=== PATIENT | male | born 1985 | race Two or more races ===

== ENCOUNTER 2018-04-02 04:55 | Inpatient (IN) | payer MEDICAID ==
[~2018-04-02] VITALS: Ht 383.5 cm; Wt 64.6 kg
[2018-04-02 10:26] LABS: BASOPHILS % 0.2 % (0.0-2.0); HEMATOCRIT. 52.2 % (42.0-52.0); HEMOGLOBIN. 17.2 g/dL (14.0-18.0); LYMPHOCYTES % 15.1 % (20.0-50.0); MEAN CORPUSCULAR HEMOGLOBIN 27.4 pg (28.0-32.0); MEAN CORPUSCULAR VOLUME 83.2 fL (80.0-94.0); MEAN PLATELET VOLUME 10.2 fl (7.4-10.4); MONOCYTES % 11.4 % (2.0-8.0); NEUTROPHILS % 73.3 % (40.0-76.0); PLATELET 224 x1000/uL (130-400); RED BLOOD CELL COUNT 6.27 mill/uL (4.7-6.1); RED CELL DISTRIBUTION WIDTH 17.6 % (11.6-14.6)
[2018-04-02] MEDS ORDERED: SODIUM CHLORIDE 0.9% 1,000 ML IV ONE ×2 (10:31→11:59)
[2018-04-02] MEDS ORDERED: LORAZEPAM 2MG/ML CPJ IV STA (10:31)
[2018-04-02 10:37] LABS: CHLORIDE 103 mEq/L (98-107)
[2018-04-02 10:42] LABS: ETHANOL BLOOD < 10 mg/dL
[2018-04-02 11:59] LABS: CLARITY URINE TURBID (CLEAR); COLOR URINE YELLOW (YELLOW); KETONES URINE NEGATIVE (NEGATIVE); LEUKOCYTE ESTERASE URINE NEGATIVE (NEGATIVE); NITRITE URINE NEGATIVE (NEGATIVE); OCCULT BLOOD URINE 1+ (NEGATIVE); PROTEIN URINE 2+ (NEGATIVE); SPECIFIC GRAVITY URINE 1.017 (1.005-1.030); UROBILINOGEN URINE 0.2 E.U./dL (0.2-1.0)
[2018-04-02] MEDS ORDERED: PIPERACILLIN/TAZ 3.375G PREMIX 50 ML IV ONE (12:00)
[2018-04-02] MEDS ORDERED: VANCOMYCIN 1 G PREMIX 200 ML IV ONE (12:00)
[2018-04-02] MEDS ORDERED: LORAZEPAM 2MG/ML CPJ IV ONE (12:00)
[2018-04-02 13:00] LABS: *AMPHETAMINES SCREEN URINE NEGATIVE (NEGATIVE); *BARBITURATES SCREEN URINE NEGATIVE (NEGATIVE); *BENZODIAZEPINES SCREEN URINE NEGATIVE (NEGATIVE); *COCAINE SCREEN URINE NEGATIVE (NEGATIVE); CANNABINOID URINE SCREEN NEGATIVE (NEGATIVE); METHADONE URINE SCREEN NEGATIVE (NEGATIVE); OPIATES URINE SCREEN NEGATIVE (NEGATIVE); PHENCYCLIDINE URINE SCREEN NEGATIVE (NEGATIVE)
[2018-04-02] MEDS ORDERED: DIPHENHYDRAMINE 50MG/ML VIAL IM STA (13:17)
[2018-04-02] MEDS ORDERED: OLANZAPINE 10 MG/VIAL IM STA (13:17)
[2018-04-02] MEDS ORDERED: LORAZEPAM 2MG/ML CPJ IV PRN (15:00)
[2018-04-02] MEDS ORDERED: HALOPERIDOL LACTATE 5MG/ML VIAL IM ONE (20:30)
[2018-04-02 20:45] VITALS: BP 113/68
[2018-04-02] MEDS: PIPERACILLIN/TAZ 3.375G PREMIX 50 ML IV SCH (22:08)
[2018-04-02] MEDS: DEXT 5%/0.45% NACL 1000ML 1,000 ML IV SCH (22:08)
[2018-04-02] MEDS ORDERED: PIPERACILLIN/TAZ 3.375G PREMIX 50 ML IV SCH (22:30)
[2018-04-02] MEDS: VANCOMYCIN 1250MG in DEXTROSE 5% WATER 250ML IV SCH (22:48)
[2018-04-03] VITALS: BP 126/69
[2018-04-03 04:00] VITALS: BP 104/62
[2018-04-03] MEDS: DEXT 5%/0.45% NACL 1000ML 1,000 ML IV SCH (05:28)
[2018-04-03] MEDS: PIPERACILLIN/TAZ 3.375G PREMIX 50 ML IV SCH ×3 (05:28→22:11)
[2018-04-03] MEDS: VANCOMYCIN 1250MG in DEXTROSE 5% WATER 250ML IV SCH ×2 (06:12→22:53)
[2018-04-03 08:04] VITALS: BP 109/62
[2018-04-03 12:11] VITALS: BP 118/68
[2018-04-03 16:30] VITALS: BP 128/70
[2018-04-03 20:00] VITALS: BP 126/80
[2018-04-03 20:58] LABS: HEMATOCRIT. 40.7 % (42.0-52.0); HEMOGLOBIN. 13.7 g/dL (14.0-18.0); MEAN CORPUSCULAR HEMOGLOBIN 27.1 pg (28.0-32.0); MEAN CORPUSCULAR VOLUME 80.8 fL (80.0-94.0); MEAN PLATELET VOLUME 9.5 fl (7.4-10.4); PLATELET 151 x1000/uL (130-400); RED BLOOD CELL COUNT 5.04 mill/uL (4.7-6.1); RED CELL DISTRIBUTION WIDTH 17.1 % (11.6-14.6)
[2018-04-03 21:40] LABS: PLATELET ESTIMATE NORMAL
[2018-04-04] VITALS: BP 112/57
[2018-04-04] MEDS: DEXT 5%/0.45% NACL 1000ML 1,000 ML IV SCH ×3 (01:30→22:20)
[2018-04-04 04:00] VITALS: BP 123/76
[2018-04-04] MEDS: PIPERACILLIN/TAZ 3.375G PREMIX 50 ML IV SCH ×4 (04:30→22:20)
[2018-04-04] MEDS: VANCOMYCIN 1250MG in DEXTROSE 5% WATER 250ML IV SCH (06:54)
[2018-04-04 08:00] VITALS: BP 123/73
[2018-04-04 12:00] VITALS: BP 149/95
[2018-04-04 16:00] VITALS: BP 138/79
[2018-04-04 23:06] LABS: CLARITY URINE CLOUDY (CLEAR); COLOR URINE YELLOW (YELLOW); KETONES URINE NEGATIVE (NEGATIVE); LEUKOCYTE ESTERASE URINE NEGATIVE (NEGATIVE); NITRITE URINE NEGATIVE (NEGATIVE); OCCULT BLOOD URINE 2+ (NEGATIVE); PH URINE 5.5 (4.5-8.0); PROTEIN URINE 1+ (NEGATIVE); SPECIFIC GRAVITY URINE 1.013 (1.005-1.030); UROBILINOGEN URINE 0.2 E.U./dL (0.2-1.0)
[2018-04-05] VITALS: BP 140/87
[2018-04-05 04:00] VITALS: BP 146/76
[2018-04-05] MEDS: PIPERACILLIN/TAZ 3.375G PREMIX 50 ML IV SCH ×2 (04:19→11:21)
[2018-04-05 07:49] LABS: HEMATOCRIT. 39.5 % (42.0-52.0); HEMOGLOBIN. 13.8 g/dL (14.0-18.0); MEAN CORPUSCULAR VOLUME 80.1 fL (80.0-94.0); MEAN PLATELET VOLUME 9.4 fl (7.4-10.4); PLATELET 152 x1000/uL (130-400); RED BLOOD CELL COUNT 4.92 mill/uL (4.7-6.1); RED CELL DISTRIBUTION WIDTH 16.7 % (11.6-14.6)
[2018-04-05 08:26] LABS: HIV SCREEN 4G Non Reactive (Non Reactive)
[2018-04-05 08:35] LABS: PHOSPHORUS 3.6 mg/dL (2.5-4.9)
[2018-04-05] MEDS: DEXT 5%/0.2% NACL 1,000 ML IV SCH ×2 (09:00→19:00)
[2018-04-05 12:00] VITALS: BP 151/71
[2018-04-05 14:20] LABS: PLATELET ESTIMATE NORMAL
[2018-04-05 16:00] VITALS: BP 146/70
[2018-04-05] MEDS: PIPERACILLIN/TAZ 2.25G PREMIX 50 ML IV SCH ×2 (18:56→21:31)
[2018-04-05 20:00] VITALS: BP 130/86
[2018-04-06 00:14] VITALS: BP 148/79
[2018-04-06 04:00] VITALS: BP 124/76
[2018-04-06] MEDS: DEXT 5%/0.2% NACL 1,000 ML IV SCH ×3 (04:23→23:32)
[2018-04-06] MEDS: PIPERACILLIN/TAZ 2.25G PREMIX 50 ML IV SCH ×4 (06:25→23:31)
[2018-04-06 08:00] VITALS: BP 156/90
[2018-04-06 12:00] VITALS: BP_SYST 126; BP_DIAS 68; BP_DIAS 86
[2018-04-06 13:28] LABS: HEMATOCRIT. 40.9 % (42.0-52.0); HEMOGLOBIN. 14.4 g/dL (14.0-18.0); MEAN CORPUSCULAR VOLUME 79.5 fL (80.0-94.0); MEAN PLATELET VOLUME 9.7 fl (7.4-10.4); PLATELET 163 x1000/uL (130-400); RED BLOOD CELL COUNT 5.14 mill/uL (4.7-6.1); RED CELL DISTRIBUTION WIDTH 16.5 % (11.6-14.6)
[2018-04-06 13:56] LABS: PHOSPHORUS 3.6 mg/dL (2.5-4.9)
[2018-04-06] MEDS ORDERED: POTASSIUM CHLORIDE 20MEQ TABLET SR PO SCH (14:15)
[2018-04-06 14:27] LABS: PLATELET ESTIMATE NORMAL
[2018-04-06 16:00] VITALS: BP 145/77
[2018-04-06] MEDS: QUETIAPINE FUMARATE 100MG TABLET PO SCH (16:09)
[2018-04-06] MEDS: THIAMINE HCL 100MG TABLET PO SCH (18:07)
[2018-04-06 20:00] VITALS: BP 124/73
[2018-04-06 22:21] LABS: VITAMIN B12 SERUM 787 pg/mL (211-911)
[2018-04-07] VITALS: BP 146/88
[2018-04-07 04:00] VITALS: BP 132/85
[2018-04-07] MEDS: PIPERACILLIN/TAZ 2.25G PREMIX 50 ML IV SCH ×2 (06:00→12:29)
[2018-04-07] MEDS: THIAMINE HCL 100MG TABLET PO SCH (08:20)
[2018-04-07] MEDS: QUETIAPINE FUMARATE 100MG TABLET PO SCH (08:20)
[2018-04-07] MEDS: LORAZEPAM 2MG/ML CPJ IM PRN (10:13)
[2018-04-07] MEDS: HALOPERIDOL LACTATE 5MG/ML VIAL IM PRN (10:41)
[2018-04-07] MEDS: DEXT 5%/0.2% NACL 1,000 ML IV SCH ×2 (11:00→20:24)
[2018-04-07 12:00] VITALS: BP 124/83
[2018-04-07 16:00] VITALS: BP 135/86
[2018-04-07 16:59] LABS: HEMOGLOBIN. 13.1 g/dL (14.0-18.0); MEAN CORPUSCULAR HEMOGLOBIN 27.6 pg (28.0-32.0); MEAN CORPUSCULAR VOLUME 80.2 fL (80.0-94.0); MEAN PLATELET VOLUME 9.8 fl (7.4-10.4); PLATELET 166 x1000/uL (130-400); RED BLOOD CELL COUNT 4.73 mill/uL (4.7-6.1); RED CELL DISTRIBUTION WIDTH 16.3 % (11.6-14.6)
[2018-04-07 17:33] LABS: PHOSPHORUS 3.8 mg/dL (2.5-4.9)
[2018-04-07 20:00] VITALS: BP 149/84
[2018-04-07 20:07] LABS: PLATELET ESTIMATE NORMAL
[2018-04-07] MEDS: RISPERIDONE 1MG TABLET PO SCH (20:24)
[2018-04-07] MEDS: BENZTROPINE MESYLATE 1MG TABLET PO SCH (20:24)
[2018-04-07 23:50] LABS: CLARITY URINE CLEAR (CLEAR); COLOR URINE YELLOW (YELLOW); KETONES URINE NEGATIVE (NEGATIVE); LEUKOCYTE ESTERASE URINE TRACE (NEGATIVE); NITRITE URINE NEGATIVE (NEGATIVE); OCCULT BLOOD URINE 2+ (NEGATIVE); PH URINE 6.5 (4.5-8.0); PROTEIN URINE TRACE (NEGATIVE); SPECIFIC GRAVITY URINE 1.006 (1.005-1.030); UROBILINOGEN URINE 0.2 E.U./dL (0.2-1.0)
[2018-04-08] VITALS: BP 153/84
[2018-04-08 04:00] VITALS: BP 147/80
[2018-04-08 07:21] LABS: BASOPHILS % 0.7 % (0.0-2.0); EOSINOPHILS % 1.4 % (0.0-5.0); HEMATOCRIT. 37.4 % (42.0-52.0); HEMOGLOBIN. 12.9 g/dL (14.0-18.0); LYMPHOCYTES % 11.1 % (20.0-50.0); MEAN CORPUSCULAR HEMOGLOBIN 27.4 pg (28.0-32.0); MEAN CORPUSCULAR VOLUME 79.6 fL (80.0-94.0); MEAN PLATELET VOLUME 9.7 fl (7.4-10.4); MONOCYTES % 13.3 % (2.0-8.0); NEUTROPHILS % 73.5 % (40.0-76.0); PLATELET 188 x1000/uL (130-400); RED CELL DISTRIBUTION WIDTH 16.3 % (11.6-14.6)
[2018-04-08 07:33] LABS: CHLORIDE 108 mEq/L (98-107)
[2018-04-08 07:44] LABS: PHOSPHORUS 3.8 mg/dL (2.5-4.9)
[2018-04-08 08:00] VITALS: BP 154/84
[2018-04-08 08:04] LABS: CREATINE KINASE 3882 IU/L (39-308)
[2018-04-08 08:10] LABS: HIV SCREEN 4G Non Reactive (Non Reactive)
[2018-04-08] MEDS: RISPERIDONE 1MG TABLET PO SCH ×3 (08:46→20:55)
[2018-04-08] MEDS: THIAMINE HCL 100MG TABLET PO SCH (08:46)
[2018-04-08] MEDS: BENZTROPINE MESYLATE 1MG TABLET PO SCH ×3 (08:46→20:55)
[2018-04-08] MEDS: DEXT 5%/0.2% NACL 1,000 ML IV SCH ×2 (08:47→16:37)
[2018-04-08 12:00] VITALS: BP 178/89
[2018-04-08] MEDS ORDERED: CLONIDINE 0.1MG TABLET PO PRN (12:30)
[2018-04-08] MEDS ORDERED: HYDRALAZINE 20MG/ML VIAL IV PRN (14:00)
[2018-04-08] MEDS: LORAZEPAM 2MG/ML CPJ IM PRN ×2 (15:10→21:39)
[2018-04-08 16:00] VITALS: BP 154/84
[2018-04-08 20:00] VITALS: BP 156/90
[2018-04-08] MEDS: HALOPERIDOL LACTATE 5MG/ML VIAL IM PRN (20:14)
[2018-04-08] MEDS: METOPROLOL TARTRATE 25MG TABLET PO SCH ×2 (20:48→20:55)
[2018-04-09] VITALS: BP 149/91
[2018-04-09 04:00] VITALS: BP 119/75
[2018-04-09] MEDS: DEXT 5%/0.2% NACL 1,000 ML IV SCH ×3 (04:39→23:01)
[2018-04-09] MEDS: LORAZEPAM 2MG/ML CPJ IM PRN (04:50)
[2018-04-09 08:20] VITALS: BP 143/88
[2018-04-09] MEDS: RISPERIDONE 1MG TABLET PO SCH ×3 (09:00→21:29)
[2018-04-09] MEDS: METOPROLOL TARTRATE 25MG TABLET PO SCH ×3 (09:00→21:29)
[2018-04-09] MEDS: THIAMINE HCL 100MG TABLET PO SCH (09:00)
[2018-04-09] MEDS: BENZTROPINE MESYLATE 1MG TABLET PO SCH ×3 (09:00→21:29)
[2018-04-09 09:10] LABS: BASOPHILS % 1.1 % (0.0-2.0); EOSINOPHILS % 2.4 % (0.0-5.0); HEMATOCRIT. 36.6 % (42.0-52.0); HEMOGLOBIN. 12.7 g/dL (14.0-18.0); LYMPHOCYTES % 9.5 % (20.0-50.0); MEAN CORPUSCULAR HEMOGLOBIN 27.3 pg (28.0-32.0); MEAN CORPUSCULAR VOLUME 78.9 fL (80.0-94.0); MEAN PLATELET VOLUME 9.2 fl (7.4-10.4); MONOCYTES % 14.6 % (2.0-8.0); NEUTROPHILS % 72.4 % (40.0-76.0); PLATELET 198 x1000/uL (130-400); RED BLOOD CELL COUNT 4.64 mill/uL (4.7-6.1); RED CELL DISTRIBUTION WIDTH 16.3 % (11.6-14.6)
[2018-04-09 12:00] VITALS: BP 148/88
[2018-04-09] MEDS ORDERED: LORAZEPAM 2MG/ML CPJ IM PRN (14:45)
[2018-04-09 16:00] VITALS: BP 142/84
[2018-04-09 20:00] VITALS: BP 147/71
[2018-04-10] VITALS (7 sets, daily range): BP systolic 109–134; BP diastolic 60–84
[2018-04-10 07:29] LABS: BASOPHILS % 0.4 % (0.0-2.0); EOSINOPHILS % 2.8 % (0.0-5.0); HEMATOCRIT. 37.5 % (42.0-52.0); HEMOGLOBIN. 12.8 g/dL (14.0-18.0); LYMPHOCYTES % 9.3 % (20.0-50.0); MEAN CORPUSCULAR HEMOGLOBIN 27.5 pg (28.0-32.0); MEAN CORPUSCULAR VOLUME 80.7 fL (80.0-94.0); MEAN PLATELET VOLUME 9.4 fl (7.4-10.4); MONOCYTES % 13.6 % (2.0-8.0); NEUTROPHILS % 73.9 % (40.0-76.0); PLATELET 222 x1000/uL (130-400); RED BLOOD CELL COUNT 4.65 mill/uL (4.7-6.1); RED CELL DISTRIBUTION WIDTH 16.2 % (11.6-14.6)
[2018-04-10] MEDS: BENZTROPINE MESYLATE 1MG TABLET PO SCH ×2 (09:00→20:39)
[2018-04-10] MEDS: RISPERIDONE 1MG TABLET PO SCH ×2 (09:00→20:39)
[2018-04-10] MEDS: THIAMINE HCL 100MG TABLET PO SCH (09:26)
[2018-04-10] MEDS: DEXT 5%/0.2% NACL 1,000 ML IV SCH ×2 (09:26→20:38)
[2018-04-10] MEDS: METOPROLOL TARTRATE 25MG TABLET PO SCH ×2 (09:27→20:39)
[2018-04-10] MEDS ORDERED: ACETAMINOPHEN 325MG TABLET PO PRN (15:15)
[2018-04-10] MEDS ORDERED: HYDROCODONE/ACETAMINOPHEN 5/325MG TABLET PO PRN (15:15)
[2018-04-11 04:00] VITALS: BP 122/74
[2018-04-11] MEDS: DEXT 5%/0.2% NACL 1,000 ML IV SCH ×2 (05:18→15:00)
[2018-04-11 08:00] VITALS: BP 127/73
[2018-04-11 08:01] LABS: BASOPHILS % 0.5 % (0.0-2.0); HEMATOCRIT. 37.5 % (42.0-52.0); HEMOGLOBIN. 12.6 g/dL (14.0-18.0); LYMPHOCYTES % 10.6 % (20.0-50.0); MEAN CORPUSCULAR HEMOGLOBIN 27.1 pg (28.0-32.0); MEAN CORPUSCULAR VOLUME 80.7 fL (80.0-94.0); MEAN PLATELET VOLUME 9.4 fl (7.4-10.4); MONOCYTES % 14.6 % (2.0-8.0); NEUTROPHILS % 71.3 % (40.0-76.0); PLATELET 267 x1000/uL (130-400); RED BLOOD CELL COUNT 4.65 mill/uL (4.7-6.1); RED CELL DISTRIBUTION WIDTH 16.1 % (11.6-14.6)
[2018-04-11] MEDS: RISPERIDONE 1MG TABLET PO SCH ×2 (09:00→20:41)
[2018-04-11] MEDS: BENZTROPINE MESYLATE 1MG TABLET PO SCH ×2 (09:00→20:40)
[2018-04-11] MEDS: METOPROLOL TARTRATE 25MG TABLET PO SCH ×2 (09:00→20:40)
[2018-04-11] MEDS: THIAMINE HCL 100MG TABLET PO SCH (10:19)
[2018-04-11 12:00] VITALS: BP 123/96
[2018-04-11 16:00] VITALS: BP 123/68
[2018-04-11 20:00] VITALS: BP 116/58
[2018-04-12] VITALS: BP 120/68
[2018-04-12] MEDS: DEXT 5%/0.2% NACL 1,000 ML IV SCH ×4 (01:00→21:12)
[2018-04-12 04:00] VITALS: BP 121/85
[2018-04-12 07:36] LABS: BASOPHILS % 0.8 % (0.0-2.0); HEMATOCRIT. 42.9 % (42.0-52.0); HEMOGLOBIN. 14.9 g/dL (14.0-18.0); LYMPHOCYTES % 15.1 % (20.0-50.0); MEAN CORPUSCULAR HEMOGLOBIN 27.7 pg (28.0-32.0); MEAN CORPUSCULAR VOLUME 79.8 fL (80.0-94.0); MEAN PLATELET VOLUME 9.3 fl (7.4-10.4); MONOCYTES % 12.2 % (2.0-8.0); NEUTROPHILS % 68.9 % (40.0-76.0); PLATELET 359 x1000/uL (130-400); RED BLOOD CELL COUNT 5.38 mill/uL (4.7-6.1); RED CELL DISTRIBUTION WIDTH 15.9 % (11.6-14.6)
[2018-04-12 08:00] VITALS: BP 119/62
[2018-04-12] MEDS: THIAMINE HCL 100MG TABLET PO SCH (09:00)
[2018-04-12] MEDS: METOPROLOL TARTRATE 25MG TABLET PO SCH ×2 (09:00→21:00)
[2018-04-12] MEDS: BENZTROPINE MESYLATE 1MG TABLET PO SCH ×2 (09:00→21:00)
[2018-04-12] MEDS: RISPERIDONE 1MG TABLET PO SCH ×2 (09:00→21:00)
[2018-04-12 09:03] LABS: PHOSPHORUS 3.3 mg/dL (2.5-4.9)
[2018-04-12 12:00] VITALS: BP 128/86
[2018-04-12] MEDS ORDERED: POTASSIUM CHLORIDE 20MEQ TABLET SR PO SCH (12:00)
[2018-04-12 16:00] VITALS: BP 126/76
[2018-04-12 20:00] VITALS: BP 109/52
[2018-04-13] VITALS: BP 112/66
[2018-04-13 04:00] VITALS: BP 111/62
[2018-04-13 07:09] LABS: BASOPHILS % 0.6 % (0.0-2.0); EOSINOPHILS % 3.5 % (0.0-5.0); HEMATOCRIT. 36.3 % (42.0-52.0); HEMOGLOBIN. 12.7 g/dL (14.0-18.0); LYMPHOCYTES % 12.1 % (20.0-50.0); MEAN CORPUSCULAR HEMOGLOBIN 27.7 pg (28.0-32.0); MEAN CORPUSCULAR VOLUME 79.1 fL (80.0-94.0); MEAN PLATELET VOLUME 8.9 fl (7.4-10.4); MONOCYTES % 11.4 % (2.0-8.0); NEUTROPHILS % 72.4 % (40.0-76.0); PLATELET 291 x1000/uL (130-400); RED CELL DISTRIBUTION WIDTH 15.8 % (11.6-14.6)
[2018-04-13 08:00] VITALS: BP 125/74
[2018-04-13] MEDS: BENZTROPINE MESYLATE 1MG TABLET PO SCH ×2 (09:00→20:33)
[2018-04-13] MEDS: RISPERIDONE 1MG TABLET PO SCH ×2 (09:00→20:40)
[2018-04-13] MEDS: THIAMINE HCL 100MG TABLET PO SCH (09:00)
[2018-04-13] MEDS: METOPROLOL TARTRATE 25MG TABLET PO SCH ×2 (09:00→20:40)
[2018-04-13 11:07] LABS: PHOSPHORUS 4.2 mg/dL (2.5-4.9)
[2018-04-13 12:00] VITALS: BP 118/79
[2018-04-13 16:00] VITALS: BP 107/51
[2018-04-13] MEDS: DEXT 5%/0.2% NACL 1,000 ML IV SCH ×2 (17:00→20:40)
[2018-04-13 17:44] LABS: CLARITY URINE CLEAR (CLEAR); COLOR URINE YELLOW (YELLOW); KETONES URINE NEGATIVE (NEGATIVE); LEUKOCYTE ESTERASE URINE TRACE (NEGATIVE); NITRITE URINE NEGATIVE (NEGATIVE); OCCULT BLOOD URINE 2+ (NEGATIVE); PROTEIN URINE TRACE (NEGATIVE); UROBILINOGEN URINE 0.2 E.U./dL (0.2-1.0)
[2018-04-13 20:00] VITALS: BP 137/75
[2018-04-14] VITALS (7 sets, daily range): BP systolic 103–140; BP diastolic 58–72
[2018-04-14 07:40] LABS: BASOPHILS % 0.4 % (0.0-2.0); EOSINOPHILS % 2.6 % (0.0-5.0); HEMATOCRIT. 37.2 % (42.0-52.0); HEMOGLOBIN. 12.9 g/dL (14.0-18.0); LYMPHOCYTES % 12.6 % (20.0-50.0); MEAN CORPUSCULAR HEMOGLOBIN 27.6 pg (28.0-32.0); MEAN CORPUSCULAR VOLUME 79.6 fL (80.0-94.0); MEAN PLATELET VOLUME 8.6 fl (7.4-10.4); MONOCYTES % 11.9 % (2.0-8.0); NEUTROPHILS % 72.5 % (40.0-76.0); PLATELET 321 x1000/uL (130-400); RED BLOOD CELL COUNT 4.67 mill/uL (4.7-6.1); RED CELL DISTRIBUTION WIDTH 15.7 % (11.6-14.6)
[2018-04-14] MEDS: METOPROLOL TARTRATE 25MG TABLET PO SCH (09:00)
[2018-04-14] MEDS: RISPERIDONE 1MG TABLET PO SCH (09:00)
[2018-04-14] MEDS: BENZTROPINE MESYLATE 1MG TABLET PO SCH (09:00)
[2018-04-14] MEDS: THIAMINE HCL 100MG TABLET PO SCH (09:00)
[2018-04-14 10:30] LABS: PHOSPHORUS 3.6 mg/dL (2.5-4.9)
[2018-04-14] MEDS: DEXT 5%/0.2% NACL 1,000 ML IV SCH (12:11)
== END 2018-04-14 18:55 | disposition home or self-care (01) | DRG 720 ==
LOC: ER 04:55 → 7WST 12:05 → EDBEDREQ 15:12 → ENRESERV 19:31
PROVIDERS: ADMIT Internal Medicine; ATTEND Internal Medicine
DX: A41.9 Sepsis, unspecified organism (principal); N17.0 Acute kidney failure with tubular necrosis; G93.41 Metabolic encephalopathy; E87.0 Hyperosmolality and hypernatremia; E87.1 Hypo-osmolality and hyponatremia; F20.2 Catatonic schizophrenia; F12.90 Cannabis use, unspecified, uncomplicated; G40.909 Epilepsy, unspecified, not intractable, without status epilepticus; F99 Mental disorder, not otherwise specified; N32.89 Other specified disorders of bladder; Z91.14 Patient's other noncompliance with medication regimen; E87.6 Hypokalemia; M62.82 Rhabdomyolysis; I10 Essential (primary) hypertension; Z82.49 Family history of ischemic heart disease and other diseases of the circulatory system; Z78.1 Physical restraint status
CPT/HCPCS: 36415; 71045; 76770; 76857; 80048; 80202; 80305; 82140; 82550; 82607; 82962; 83036; 83605; 83735; 84100; 84145; 87389; 93005; 96361; 96365; 96366; 96367; 96372; 96375; 96376; 97116; 97163; 99285; G0482; J0360; J1200; J1630; J2060; J2543; J3370; J3490; J7030; J7060; A4315

== ENCOUNTER 2018-06-25 05:18 | Emergency (ER) | payer MEDICAID, MEDICARE ==
[~2018-06-25] VITALS: Ht 165.1 cm; Wt 59.0 kg
[2018-06-25 07:15] VITALS: BP 133/63
== END 2018-06-25 07:22 | disposition home or self-care (01) ==
LOC: ER 05:18
DX: F20.9 Schizophrenia, unspecified (principal); Z98.890 Other specified postprocedural states
CPT/HCPCS: 99283

== ENCOUNTER 2018-06-25 21:21 | Emergency (ER) | payer MEDICARE ==
[~2018-06-25] VITALS: Ht 165.1 cm; Wt 68.0 kg
[2018-06-26] MEDS ORDERED: IBUPROFEN 600MG TABLET PO ONE (00:15)
[2018-06-26] MEDS ORDERED: TOLNAFTATE 1% CREAM 15GM TOP SCH (09:00)
[2018-06-26 15:04] VITALS: BP 127/85
== END 2018-06-26 15:05 | disposition home or self-care (01) ==
LOC: ER 21:21
DX: B35.3 Tinea pedis (principal); Z59.0 Homelessness
CPT/HCPCS: 99283; Z7610